=== PATIENT | male | born 1985 | race Two or more races ===

== ENCOUNTER 2022-08-20 15:58 | Emergency (ER) | payer MEDICAID ==
[~2022-08-20] VITALS: Ht 175.3 cm; Wt 95.3 kg
--- NOTE | 2022-08-20 16:10 | NUR ---
received pt 37 yrs male walking in from home cut in 4finge with nasim fleming
--- NOTE | 2022-08-20 16:20 | NUR ---
Seen by DR. MAHAN NERVE BLACK 4 FINGER
[2022-08-20] MEDS ORDERED: LIDOCAINE HCL/PF 1% 30 ML VIAL TP ONE (16:30)
[2022-08-20] MEDS ORDERED: TDAP [DIPH/PERTUSSIS/TET] 0.5 ML VIAL IM ONE ×2 (16:30→16:50)
[2022-08-20] MEDS ORDERED: HYDROCODONE/APAP 5/325MG TABLET PO ONE (16:30)
[2022-08-20] MEDS ORDERED: IBUPROFEN 600 MG TABLET PO ONE (16:30)
--- NOTE | 2022-08-20 16:30 | NUR ---
IRRGATED WOUND BY ED TACH
--- NOTE | 2022-08-20 16:45 | NUR ---
X RAY DONE ON LT HAND AT BED SIDE
[2022-08-20] MEDS ORDERED: HYDROCODONE/APAP 5/325MG TABLET ONE (16:49)
[2022-08-20] MEDS ORDERED: IBUPROFEN 600 MG TABLET ONE (16:50)
[2022-08-20] MEDS ORDERED: LIDOCAINE MPF 1%-EPI 1:200,000 30 ML VIAL IJ ONE (16:51)
--- NOTE | 2022-08-20 17:22 | NUR ---
AT BED SIDE FOR SUTURE ON FINGERS
[2022-08-20] MEDS ORDERED: CEPHALEXIN MONOHYDRATE 500 MG CAPSULE PO ONE ×2 (17:30→17:36)
[2022-08-20] MEDS ORDERED: IBUP-1953 PO (17:43)
[2022-08-20] MEDS ORDERED: CEPH500C2 PO (17:43)
[2022-08-20] MEDS ORDERED: HYDR-3972 PO (17:43)
--- NOTE | 2022-08-20 18:15 | NUR ---
DRESSING APPLED BY ED TACH AT BED SIDE TOLORATED PROCEDUR WILL DREAAING APPLED AND FINGER SPLENT APPLED
--- NOTE | 2022-08-20 18:39 | NUR ---
Patient discharged to home in stable condition. Written and verbal after care instructions given. Patient verbalizes understanding of instruction.
[2022-08-20 18:51] VITALS: BP 137/79
== END 2022-08-20 18:53 | disposition home or self-care (01) ==
LOC: ER 16:02
DX: S62.605B Fracture of unspecified phalanx of left ring finger, initial encounter for open fracture (principal); S62.607B Fracture of unspecified phalanx of left little finger, initial encounter for open fracture; W27.0XXA Contact with workbench tool, initial encounter; Y93.89 Activity, other specified; Y92.89 Other specified places as the place of occurrence of the external cause; Y99.8 Other external cause status
CPT/HCPCS: 11760; 99284; 12005; 90471; 90715; 73130; J3490 ×2; A6403